=== PATIENT | female | born 1980 | race Caucasian/White ===

== ENCOUNTER 2017-11-28 01:42 | Emergency (ER) | payer BC ==
[2017-11-28 02:53] LABS: #Basophils 0.1 thou/uL (0.0-0.2); #Eosinphils 0.2 thou/uL (0.0-0.7); #Lymphocytes 2.2 thou/uL (1.20-3.40); #Monocytes 0.3 thou/uL (0.11-0.59); #Neutrophils 5.1 thou/uL (1.40-6.50); %Basophils 0.7 % (0.0-1.0); %Eosinophils 2.3 % (0.0-10.0); %Lymphocytes 28.3 % (21.0-51.0); %Monocytes 4.3 % (0.0-10.0); %Neutrophils 64.4 % (42.0-75.0); Hemoglobin 13.3 g/dL (12.0-16.0); Mean Corpuscular HGB CONC 34.3 g/dL (32.0-36.0); Mean Corpuscular Hemoglobin 32.4 pg (27.0-31.0); Mean Corpuscular Volume 94.6 fl (81.0-99.0); Mean Platelet Volume 6.5 fL (7.4-10.4); Platelet Count 361 thou/uL (130-400); RBC Distribution Width 11.9 % (11.5-14.5); Red Blood Cell (RBC) Count 4.11 mill/uL (4.20-5.40); White Blood Cell (WBC) Count 7.9 thou/uL (4.8-10.8)
[2017-11-28 03:11] LABS: ALT (SGPT) 13 U/L (8-55); AST (SGOT) 19 U/L (5-34); Albumin 4.6 g/dL (3.5-5.0); Alkaline Phosphatase 64 U/L (40-150); Anion Gap 16 mmol/L (10-20); BUN (Urea Nitrogen) 12 mg/dL (7.0-18.7); Bilirubin, Total 0.4 mg/dL (0.2-1.2); Calc. Creatinine Clearance 0 mL/min (70-130); Calcium 10.2 mg/dL (7.8-10.44); Carbon Dioxide 24 mmol/L (22-29); Chloride 104 mmol/L (98-107); Estimated GFR-MDRD 68; Globulin 3.3 g/dL (2.4-3.5); Glucose 96 mg/dL (70-105); Lipase 9 U/L (8-78); Potassium 4.1 mmol/L (3.5-5.1); Protein, Total 7.9 g/dL (6.0-8.3); Sodium 140 mmol/L (136-145)
[2017-11-28 03:26] LABS: Pregnancy Test - Urine (BHCG) Negative (Negative); Pregu Control Background? CLEAR/WHITE (CLR/WHITE); Pregu Control Bar Appear? YES (CONTROL BAR)
[2017-11-28 03:28] LABS: Bilirubin Negative (Negative); Blood, Urine Negative (Negative); Clarity CLOUDY (Clear); Glucose, Urine (Dipstick) Negative (Negative); Leukocyte Trace (Negative); Nitrite Negative (Negative); Protein, Urine (Dipstick) Negative (Neg-Trace); Specific Gravity 1.017 (1.002-1.036); Specific Gravity, Urine 1.017 (1.002-1.036); Urobilinogen 0.2 mg/dL (0.2-1.0); pH, Urine 5.5 (5.0-9.0)
[2017-11-28 03:30] LABS: Bacteria/HPF 1+ HPF (None Seen); Hyaline Casts/LPF 0-3 HYALINE CAST LPF (0-3 Hyaline); Pathc Cast-AUWi Flag 0.54 (0-2.49)
[2017-11-28 03:32] LABS: RBC/HPF 0-3 HPF (0-3)
[2017-11-28] MEDS ORDERED: Dicyclomine 20 MG TAB ONE (03:32)
[2017-11-28] MEDS ORDERED: Ondansetron ODT 4 MG TAB ONE (03:32)
[2017-11-28] MEDS ORDERED: Mineral Oil ENEMA PR SCH (03:45)
[2017-11-28] MEDS ORDERED: Lidocaine Viscous Sol 2% 15 ml UD Cup ONE (06:23)
[2017-11-28] MEDS ORDERED: Lorazepam 2 MG/ML VIAL ONE ×2 (07:45→08:21)
[2017-11-28] MEDS ORDERED: Ketorolac Tromethamine 30 MG/ML VIAL ONE (07:46)
--- NOTE | 2017-11-28 08:04 | RAD ---
CHEST ONE VIEW: ABDOMEN TWO VIEWS: HISTORY: Nausea. No bowel movement in five days. FINDINGS: The heart size is normal. The lungs are clear. No free air is seen. Multiple differential air-flui d levels are seen in the abdomen. Findings may either be due to a small bowel obstruction or an ileu s. Clinical correlation is recommended. There are postop changes of a cholecystectomy. POS: [facility]
== END 2017-11-28 09:30 | disposition home or self-care (01) ==
LOC: ERS 01:42
DX: K56.41 Fecal impaction (principal); E03.9 Hypothyroidism, unspecified; I10 Essential (primary) hypertension; F41.9 Anxiety disorder, unspecified; Z79.899 Other long term (current) drug therapy
CPT/HCPCS: 36415; 74022; 80053; 81003; 81015; 81025; 83690; 85025; 96374; 96375; 96376; J1885; J2060; Q0162